=== PATIENT | male | born 1955 | race Caucasian/White ===

== ENCOUNTER 2016-05-10 14:45 | Day surgery (SDC) | payer OTHER ==
[~2016-05-10] VITALS: Ht 162.6 cm; Wt 69.2 kg
[2016-05-10] VITALS (9 sets, daily range): BP systolic 140–161; BP diastolic 78–90; PULSE 68–84; RESP 12–18; Ht 162.6 cm; Wt 69.2 kg
[2016-05-10] MEDS ORDERED: METF1000 PO (15:22)
[2016-05-10] MEDS ORDERED: ATOR20TA38 PO (15:23)
[2016-05-10] MEDS ORDERED: LANT3I SC (15:23)
--- NOTE | 2016-05-10 18:24 | HPN ---
Date/Time of Note Date/Time of Note DATE: 05/10/16 TIME: 18:24 Interval H&P Admission Note Pt. seen H&P reviewed: No system changes KERA GREEN MD May 10, 2016 18:24
[2016-05-10] MEDS ORDERED: LIDOCAINE 1%/EPI 30 ML INJ ONE (19:22)
[2016-05-10] MEDS ORDERED: FENTAnyl 50 MCG/ML VIAL ONE (19:26)
[2016-05-10] MEDS ORDERED: MIDAZOLAM 1 MG/ML 2 ML INJ ONE (19:26)
--- NOTE | 2016-05-10 20:12 | OPR ---
Date/Time of Note Date/Time of Note DATE: 05/10/16 TIME: 20:10 Operative Report Procedure Date: May 10, 2016 Preoperative Diagnosis Basal cell carcinoma left nasal ala. Postoperative Diagnosis Same Operation Performed Wide excision left nasal ala, melolabial transposition flap reconstruction, stage 1. Surgeon: KERA GREEN MD Anesthesia: general Estimated Blood Loss: 10 - 50 ml's Specimens Left ala for frozen section analysis. Complications: None Pt Condition Post Procedure: stable Disposition: PACU Indications Basal cell carcinoma left nasal ala. Operative Findings Description of procedure: The patient was identified in the holding area with family. We had a discussion to confirm understanding of indications, risks, benefits, alternatives and postoperative care associated with the operation. Informed consent was signed. The patient was taken the operating room and placed supine on the operating table. General endotracheal anesthesia was achieved. The face was prepped and draped in normal sterile fashion. A marking pen was used to carola the borders of resection. This was also used to carola the anterior auricular incision for cartilage harvest. The cartilage was harvested first to avoid filed contamination. 15 blade incision was made and subperichondrial flap was elevated. The cartilage graft was harvested and the wound was sutured closed with a running 50 fast. Next, the 15 blade was used to resect the lesion which was oriented and evaluated by pathology. Once margins were cleared, the melolabial flap was planned and the cuts were made in the fold to free it. The rim was elevated in the subcutaneous plane to 3 mm after which deeper dissection was used to elevate a large pedicle down to the facial musculature. Blunt dissection was used at this layer. The flap was rotate into the defect in clockwise fashion and secured with interrupted deep 40 monocryl suture. Minimal defatting was performed and the superficial layer secured with 50 fast running. The donor cheek site was closed in layered fashion and the wound dressed sterily. The patient tolerated the procedure well and was extubated, taken to PACU in stable condition. Complications: None KERA GREEN MD May 10, 2016 20:12
[2016-05-10] MEDS ORDERED: ONDANSETRON 4 MG INJ IV PRN (20:30)
[2016-05-10] MEDS ORDERED: HYDROmorphONE (0.2 MG/ML) 10ML SYG IV PRN ×2 (20:30)
[2016-05-10] MEDS ORDERED: FENTAnyl 50 MCG/ML VIAL IV PRN (20:30)
[2016-05-10] MEDS ORDERED: DIPHENHYDRAMINE 50 MG INJ IV PRN (20:30)
[2016-05-10] MEDS ORDERED: MEPERIDINE 25 MG INJ IV PRN (20:30)
[2016-05-10] MEDS ORDERED: morphine 2 MG INJ IV PRN (20:30)
[2016-05-10] MEDS ORDERED: MUPIROCIN 2% 15 GM CR ONE (21:00)
[2016-05-10] MEDS ORDERED: BACITRACIN 0.9 GM OINT ONE (21:01)
[2016-05-10] MEDS ORDERED: ONDANSETRON 4 MG INJ ONE (21:12)
[2016-05-10] MEDS ORDERED: ROCURONIUM 50 MG INJ ONE (21:12)
[2016-05-10] MEDS ORDERED: LIDOCAINE 2% (SDV) 5 ML INJ ONE (21:12)
[2016-05-10] MEDS ORDERED: CEFAZOLIN 1 GM INJ ONE (21:12)
[2016-05-10] MEDS ORDERED: PROPOFOL 20 ML ONE (21:12)
== END 2016-05-10 22:38 | disposition home or self-care (01) ==
LOC: SDS 14:45
PROVIDERS: ATTEND Otolaryngology
DX: C44.311 Basal cell carcinoma of skin of nose (principal); L57.8 Other skin changes due to chronic exposure to nonionizing radiation; E11.9 Type 2 diabetes mellitus without complications; Z79.4 Long term (current) use of insulin; E78.5 Hyperlipidemia, unspecified; Z79.84 Long term (current) use of oral hypoglycemic drugs
CPT/HCPCS: 14060; 21235; 82962; 88305; 88331; J0690; J2250; J3010; Z7512; Z7610; J2405

== ENCOUNTER 2016-07-08 11:14 | Observation (INO) | payer OTHER ==
[~2016-07-08] VITALS: Ht 162.6 cm; Wt 68.6 kg
[2016-07-08] VITALS (18 sets, daily range): BP systolic 95–142; BP diastolic 56–81; PULSE 68–90; RESP 16–25; Ht 162.6 cm; Wt 68.6 kg
[~2016-07-08 11:14] MED LIST: ATOR20TA38 PO; LANT3I SC; METF1000 PO
[2016-07-08] MEDS ORDERED: MIDAZOLAM 1 MG/ML 2 ML INJ ONE (12:34)
[2016-07-08] MEDS ORDERED: ROPIVACAINE 0.5 % 30 ML VIAL ONE (12:34)
[2016-07-08] MEDS ORDERED: PROPOFOL 100 ML ONE (12:34)
[2016-07-08] MEDS ORDERED: FENTAnyl 50 MCG/ML VIAL ONE (12:34)
[2016-07-08] MEDS ORDERED: ROCURONIUM 50 MG INJ ONE (12:34)
--- NOTE | 2016-07-08 13:41 | RADRPT ---
PROCEDURE: Chest Radiograph. CLINICAL INDICATION: Preop TECHNIQUE: Single frontal chest radiograph. COMPARISON: None available FINDINGS: The cardiomediastinal silhouette is within normal limits. No infiltrate or effusion is seen. Th e bones are intact. IMPRESSION: 1. Unremarkable chest radiograph. RPTAT: KK .Prashant Bowie MD, MD Date Time Electronically viewed and signed by .Prashant Bowie MD, on 07/08/2016 13:41 .B/
[2016-07-08] MEDS ORDERED: BUPIVACAINE 0.5%/EPI (SDV) 30 ML INJ ONE (14:25)
[2016-07-08] MEDS ORDERED: EPHEDrine SULFATE 50 MG/5 ML SYG IV PRN (14:30)
[2016-07-08] MEDS ORDERED: POLYMYXIN/BACITRACIN 1L IRRIG IRR ONE (14:30)
[2016-07-08] MEDS ORDERED: morphine (1 MG/ML) 10ML SYRINGE IV PRN ×3 (14:30)
[2016-07-08] MEDS ORDERED: HYDROmorphONE (0.2 MG/ML) 10ML SYG IV PRN ×3 (14:30)
[2016-07-08] MEDS ORDERED: hydrALAzine 20 MG INJ IV PRN (14:30)
[2016-07-08] MEDS ORDERED: DIPHENHYDRAMINE 50 MG INJ IV PRN (14:30)
[2016-07-08] MEDS ORDERED: METOCLOPRAMIDE 10 MG INJ IV PRN (14:30)
[2016-07-08] MEDS ORDERED: MEPERIDINE 25 MG INJ IV PRN (14:30)
[2016-07-08] MEDS ORDERED: LABETALOL HCL 20MG INJ IV PRN (14:30)
[2016-07-08] MEDS ORDERED: ONDANSETRON 4 MG INJ IV PRN ×2 (14:30→17:30)
[2016-07-08] MEDS ORDERED: PHENYLephrine (100 MCG/ML) 5ML SYG ONE ×2 (14:54→15:40)
[2016-07-08] MEDS ORDERED: POLYMYXIN/BACITRACIN 1L IRRIG ONE (14:54)
[2016-07-08] MEDS ORDERED: KETOROLAC 30 MG INJ ONE (14:55)
[2016-07-08] MEDS ORDERED: ONDANSETRON 4 MG INJ ONE (14:55)
[2016-07-08] MEDS ORDERED: METOCLOPRAMIDE 10 MG INJ ONE (14:55)
[2016-07-08] MEDS ORDERED: DEXAMETHASONE 4 MG/ML 1 ML INJ ONE (14:55)
[2016-07-08] MEDS ORDERED: CEFAZOLIN 1 GM INJ ONE ×2 (14:55→16:36)
[2016-07-08] MEDS ORDERED: GLYCOPYRROLATE 0.4 MG INJ ONE (16:44)
[2016-07-08] MEDS ORDERED: NEOSTIGMINE 3 MG/3 ML SYRINGE ONE (16:44)
[2016-07-08] MEDS ORDERED: KETOROLAC 30 MG INJ IV PRN (17:30)
[2016-07-08] MEDS ORDERED: HYDROCODONE/APAP (5/325) TAB PO PRN (17:30)
[2016-07-08] MEDS ORDERED: ACETAMINOPHEN 325 MG TAB PO PRN (17:30)
--- NOTE | 2016-07-08 17:48 | RADRPT ---
PROCEDURE: XR Right Shoulder. CLINICAL INDICATION: Right shoulder pain. Postop. TECHNIQUE: Two views. Frontal and oblique. COMPARISON: Chest x-ray done earlier the same day. FINDINGS: There is a right shoulder reverse arthroplasty. This appears satisfactory. There is no fracture, dislocation, or loosening. Gas is present in the soft tissues related to the recent surgery. IMPRESSION: 1. Satisfactory postoperative appearance of the right shoulder. RPTAT: QQ .Sukhjinder Mccall MD, MD Date Time Electronically viewed and signed by .Sukhjinder Mccall MD, on 07/08/2016 17:48 .R/
--- NOTE | 2016-07-08 21:02 | RADRPT ---
Vent Rate: 63 bpm RR Interval: 0 msec [place] Interval: 160 msec QRS Duration: 90 msec QT Interval: 398 msec QTC Interval: 407 msec P-R-T [place]: 45 - 20 - 42 degrees Normal sinus rhythm Normal ECG Electronically Signed By: Lul Cruz [id number]
[2016-07-09 05:20] VITALS: BP 112/61; PULSE 82; RESP 18
[2016-07-09 07:33] VITALS: BP 116/74; RESP 19
--- NOTE | 2016-07-09 12:58 | OPR ---
DATE OF OPERATION: 07/08/2016 PREOPERATIVE DIAGNOSIS: Right rotator cuff arthropathy. POSTOPERATIVE DIAGNOSIS: Right rotator cuff arthropathy. PROCEDURES PERFORMED: 1. Right reverse total shoulder arthroplasty. CPT code 12832. 2. Right open biceps tenodesis. CPT code 85560. SURGEON: Rikki Zelaya MD SHADE MAKER: Luis A Nunes MD ANESTHESIOLOGIST: Miles Reyes MD ANESTHESIA: General. IMPLANT USED: DePuy reverse total shoulder with a size 10 distal stem, size 1 centered epiphysis, size 9 poly, 42 standard glenosphere with 30 mm, 30 mm, 36 mm compression screws. ESTIMATED BLOOD LOSS: 25 mL. COMPLICATIONS: None. DISPOSITION: To PACU in stable condition. INDICATIONS FOR PROCEDURE: This is a 60-year-old male with right rotator cuff arthropathy, who has failed nonoperative management. The risks, benefits, alternatives to surgical intervention were discussed with the patient, informed consent was obtained. The risks of surgery include but are not limited to infection, deep venous thrombosis, pulmonary embolism, fractures of the humerus and glenoid, instability of shoulder, damage to neurovascular structures including but not limited to axillary nerve and musculocutaneous nerves, wound healing problems, keloid formation, need for blood transfusion, risks associated with anesthesia, heart attack, stroke, need for revision surgery, and even . DESCRIPTION OF PROCEDURE: The patient was met in the preoperative suite. The correct operative site was confirmed and marked. He was then brought into the operating room. After induction of general anesthesia, he was placed in the beach chair position on the operating table. The right shoulder and arm were then prepped and draped in the usual sterile fashion. Before starting, a timeout was taken to identify the correct operative site and to confirm the preoperative antibiotics consisting of 2 grams of IV Ancef were administered. At this point, after an 8 cm incision was made using the deltopectoral interval. The cephalic vein was identified and retracted laterally with the deltoid. The upper portion of the pectoralis major was released. Next, the clavipectoral fascia was then identified and incised. The subscapularis tendon was then visualized and with the arm placed in slight external rotation, the tendon was placed on stretch. The tendon was then incised 1 cm from its insertion onto the lesser tuberosity. The capsule was then subsequently identified and incised. A capsulotomy was performed. The humeral head was then dislocated. A large rotator cuff tear was then visualized. It was irreparable. The biceps tendon was intact and tenodesis was performed. The humeral head had extensive wear of the cartilage with osteophyte formation. The central portion of the humeral head was noted to be bare of any cartilage. At this point, the intramedullary guide was then used and pinned and the humeral head articular surface was then cut using the oscillating saw. At this point, the intramedullary canal and cancellous bone were then visualized. Sequential broaching was begun going up to a size 10 broach. The trial broach was then left in place, and a humeral tray was then used to protect the humerus. Next, retractors were placed for the glenoid exposure. The labrum was then removed. The glenoid was then visualized. The reamer was then used. At this point, all soft tissue was completely cleared around the glenoid to allow for secure fixation of the glenosphere to the baseplate. The centering hole was then drilled with a 20-degree inferior tilt of the guide pin. The inferior edge of the glenoid drill guide was then placed along the inferior edge of the glenoid. After the centering hole was drilled, 3 remaining screws were then placed, measuring 30 mm, 30 mm, 36 mm. All screws were placed in a locking fashion. The 42 mm standard glenosphere was then impacted into place. Next, attention was then turned back to the humerus. A size 6 poly baseplate was then placed and the humerus was then reduced. Although the shoulder was noted to have adequate stability, it was determined that there was not adequate tension. Next, a trial 9 mm poly was then placed and the shoulder was again reduced. The joint was tested for full range of motion, muscle tension and stability. Trial component was removed. The bony surfaces were pulse lavaged and dried. The appropriate size 10 mm stem with a 9 mm polyethylene were then placed and impacted. The shoulder was then reduced with unchanged stability and range of motion. The subscapularis tendon was repaired to the lateral tendon stump and bone with transosseous sutures. The deltopectoral interval was closed using #1 Vicryl. The subcutaneous tissue was closed using 2-0 Vicryl and the skin with 3-0 Monocryl in subcuticular fashion. Steri-Strips were applied. A sterile dressing was applied. The patient was then placed in a sling. He was awakened and taken to the postoperative care unit in stable condition. There were no complications during surgery. All counts were correct. POSTOPERATIVE CARE: The patient will be admitted. He will receive pain medications. He will use the sling at all times. He will receive prescriptions for tramadol and Umpire. Upon discharge, he will follow up in my office within 2 weeks postoperatively. Dictated By: RIKKI MOLINA/YVONNE Conf#: [id number] DID#: [id number] MTDD
== END 2016-07-09 12:43 | disposition home or self-care (01) ==
LOC: INTOOBSV 11:14 → REC 11:14 → MS1 18:24
PROVIDERS: ADMIT Orthopaedic Surgery Adult Reconstructive Orthopaedic Surgery; ATTEND Orthopaedic Surgery Adult Reconstructive Orthopaedic Surgery
DX: M19.011 Primary osteoarthritis, right shoulder (principal); E11.9 Type 2 diabetes mellitus without complications; Z79.4 Long term (current) use of insulin; E78.5 Hyperlipidemia, unspecified; I10 Essential (primary) hypertension; E78.00 Pure hypercholesterolemia, unspecified
CPT/HCPCS: 23430; 23472; 71010; 73030; 82962; 88304; 88311; 93005; C1776; J0690; J1100; J1885; J2250; J2370; J2405; J2710; J2765; J2795; J3010; Z7500; Z7512; Z7610; 99217; G0378

== ENCOUNTER 2017-07-21 18:35 | Emergency (ER) | END 2017-07-21 19:42 | disposition home or self-care (01) ==

== ENCOUNTER 2017-10-04 12:39 | Day surgery (SDC) | END 2017-10-04 19:38 | disposition home or self-care (01) ==